=== PATIENT | female | born 1950 | race Caucasian/White ===

== ENCOUNTER 2016-10-16 08:41 | Outpatient (CLI) | payer OTHER ==
--- NOTE | 2016-10-16 10:19 | DIAGNOSTIC IMAGING REPORT ---
PROCEDURE: US ABDOMEN ULTRASOUND-COMPLETE INDICATION: ABD PAIN,EVAL FOR GALLSTONES TECHNIQUE: Traylor scale and color Doppler sonographic images of the abdomen were obtained. COMPARISON: CT abdomen/pelvis 06/30/2010 FINDINGS: There are multiple tiny nonshadowing mobile gallstones. There is no gallbladder wall thickening or pericholecystic fluid. Negative Altamirano's sign. Normal CBD measures 2.8 mm. Liver and pancreas are normal. Spleen not well visualized. Aorta and IVC are patent. Normal hepatopetal flow. Right kidney measures 11 cm with a 2.4 cm superior to mid pole simple cyst. Left sommer measures 9.5 cm with a 1 cm mid pole simple cyst. IMPRESSION: 1. Multiple tiny mobile gallstones 2. Bilateral renal cysts
[2016-11-08] MEDS ORDERED: HYDROCHLOROTHIA25 MG PO (12:18)
[2016-11-08] MEDS ORDERED: DILAUDID2 MG PO (12:18)
[2016-11-08] MEDS ORDERED: ATORVASTATIN CA40 MG PO (12:18)
[2016-11-08] MEDS ORDERED: OMEPRAZOLE20 M1 PO (12:19)
[2016-11-08] MEDS ORDERED: LISINOPRIL10 MG PO (12:19)
== END 2016-10-16 23:00 ==
LOC: US SRH 08:41
DX: R10.9 Unspecified abdominal pain (principal); K80.80 Other cholelithiasis without obstruction; N28.1 Cyst of kidney, acquired

== ENCOUNTER 2016-11-12 07:20 | Day surgery (SDC) | payer OTHER ==
[~2016-11-12] VITALS: Ht 154.9 cm; Wt 57.1 kg
[~2016-11-12 07:20] MED LIST: ATORVASTATIN CA40 MG PO; DILAUDID2 MG PO; HYDROCHLOROTHIA25 MG PO; LISINOPRIL10 MG PO; OMEPRAZOLE20 M1 PO
[2016-11-12] MEDS ORDERED: HYCET1 ML PO (10:40)
--- NOTE | 2016-11-12 10:41 | Provider's Discharge Care Plan ---
Problem, Goal, Plan Problem List 1. S/P laparoscopic cholecystectomy Goals: Improve disease control, Therapeutic intervention Instructions: Follow up as directed, Take meds as directed
--- NOTE | 2016-11-12 10:41 | Provider's Discharge Care Plan ---
Problem, Goal, Plan Problem List 1. S/P laparoscopic cholecystectomy Goals: Improve disease control, Therapeutic intervention Instructions: Follow up as directed, Take meds as directed
--- NOTE | 2016-11-12 11:34 | OPERATIVE REPORT ---
DATE OF SURGERY: 11/12/2016 SURGEON: Marshal Pisano III, MD SAMMYING MACHINE OPERATOR: Jesus Miller MD PREOPERATIVE DIAGNOSIS: 1. Symptomatic cholelithiasis POSTOPERATIVE DIAGNOSIS: 1. Symptomatic cholelithiasis PROCEDURES PERFORMED: 1. Laparoscopic cholecystectomy ANESTHESIA: General endotracheal. INDICATIONS: The patient is a 65-year-old female with right upper quadrant abdominal pain. Thirty years ago had similar symptoms. She was seen by her family physician and told she had gallstones, but nothing came of it. Recently became symptomatic with right upper quadrant pain. She had a CT of the abdomen which showed multiple tiny stones. Scheduled for laparoscopic cholecystectomy. SURGICAL FINDINGS: Distended gallbladder with tiny stones. The cystic duct was very tiny and could not allow cannulation because of the tiny lumen. The patient had no prior history of jaundice, janie-colored stool or dark urine. SURGICAL TECHNIQUE: The patient was brought to the operating room and placed in the dorsal supine position where she was administered general endotracheal anesthesia by the anesthesiology department. After proper anesthesia had taken effect, the patient 's abdomen was prepped using Betadine and draped in a sterile fashion. An infraumbilical incision was made, carried down through skin and subcutaneous tissue. A Veress needle was inserted through this site, into the abdominal cavity, and after ascertaining its appropriate position with suction irrigation, a pneumoperitoneum was obtained using CO2 insufflation to approximately 14-15 mmHg pressure. Once this pressure was reached, the Veress needle was removed and replaced with a 10 mm trocar. The trocar was removed, leaving the sleeve behind, through which a laparoscopic video camera was introduced in the abdominal cavity. Under direct visualization, a separate 10 mm trocar was placed in the subxiphoid region, two 5 mm trocars were placed in the anterolateral abdominal wall, approximately 3-4 fingerbreadths below the costal margin. Each entered the abdominal cavity under direct visualization. The trocars were removed, leaving the sleeves behind, through which laparoscopic instrumentation was introduced into the abdominal cavity. The gallbladder was identified, retracted cephalad. Adhesions to the anterior wall of the gallbladder were taken down using electrocautery dissection. The cystic duct was circumferentially isolated using a combination of blunt dissection and electrocautery. A clip was placed at the junction of the neck of the gallbladder and the cystic duct. A small incision was made in the anterior surface of the cystic duct. A percutaneous cholangiogram catheter was threaded through the anterior abdominal wall, and multiple attempts at various locales on the cystic duct were attempted, without success. The cystic duct lumen was quite tiny and would not allow our cannula to be inserted. Therefore, I decided not to proceed with intraoperative cholangiogram. The distal cystic duct was clipped in continuity, divided. The cystic artery identified, clipped in continuity and divided. The gallbladder was taken down from its bed in a retrograde fashion using electrocautery dissection, placed in a sterile specimen container bag and retrieved from the abdominal cavity and sent to pathology. The gallbladder bed was inspected for hemostasis. Assuring to have proper hemostasis , the right upper quadrant was irrigated with warm normal saline and antibiotic solution and the irrigant suctioned out. Approximately 30 mL of 0.5% Marcaine with epinephrine was sprayed over the right and left dome of the liver for postoperative analgesia. The pneumoperitoneum was released and all trocars were removed from the abdominal cavity. All trocar sites approximated using 4-0 subdermal Polysorb and Steri-Strips. Sterile pressure occlusive dressings placed over each site. The patient tolerated the procedure well, was extubated and transferred to the recovery room in stable condition. There were no intraoperative or anesthetic complications.
[2016-11-12 14:00] VITALS: BP 122/73
== END 2016-11-12 14:48 | disposition home or self-care (01) ==
LOC: OR SRH 07:20 → SCU SRH 08:02 → OR SRH 09:45
PROVIDERS: Specialist
PROC: 0FT44ZZ Resection of Gallbladder, Percutaneous Endoscopic Approach (ICD-10-PCS; principal; 2016-11-12 09:45)
DX: K80.10 Calculus of gallbladder with chronic cholecystitis without obstruction (principal); I10 Essential (primary) hypertension; Z72.0 Tobacco use
CPT/HCPCS: 29240; 50002; 60001; 70002; 80102; 80212; 80248; 82669; 82794; 82807; 83338; 83339; 83348; 83587; 83920; 83937; 83982; 84038; 90074; 90100; 95059

== ENCOUNTER → 2016-12-13 | Emergency (ER) | payer OTHER ==
[~2016-12-13] MED LIST changes: +HYCET1 ML PO
--- NOTE | 2016-12-13 11:57 | ED NURSING NOTES ---
Clinical Report - Nurses [facility] [address] [place] [address] 12/13/2016 10:16 [id number] Triage time 10:18. Acuity: LEVEL 3. Chief Complaint: CHEST PAIN. Alert. No acute distress. BRIAN COMA SCORE: [employer] Coma Scale: 15- eyes open spontaneously (4); best verbal response- oriented x 4 (5); best motor response- obeys commands (6). --10:29 Eli Shaffer R.N. 10:18 12/13/16. BP: 136/63. HR: 56. RR: 18. O2 saturation: 100%. Temp: 97.7 F (oral). Pain level now: 6/10. --10:29 Eli Shaffer R.N. Weight: 55.3 kg stated. Height/Length: 61 inches Per Patient. BMI: 23. --10:23 Eli Shaffer R.N. Medications Lisinopril Oral. Omeprazole Oral. Simvastatin Oral. --10:21 Eli Shaffer R.N. Nitroglycerin Translingual. --10:21 Eli Shaffer R.N. Medication/allergy information source: the patient. --10:29 Eli Shaffer R.N. Allergies Codeine. Morphine and Related. --10:21 Eli Shaffer R.N. History Arrived by private vehicle. Historian: patient. Accompanied by family. Primary physician (Aleksandar). This started today. Onset. (0500). Describes the quality as dull, sharp and (constant). Relates location as in the left chest area. Notes pain level as 6/10 on arrival and 8/10 at maximum. Provoking / relieving factors: not worsened by anything; relieved by nitroglycerin (two, from patients own supply). (better with deep breaths). Relief was partial. The patient has had difficulty breathing and nausea. No sweating episodes or vomiting. 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 SOCIAL HX: Heavy tobacco smoker- 1 pack per day. No alcohol use or drug use. FALL RISK ASSESSMENT: Fall risk assessment completed. No fall risk identified. FUNCTIONAL ASSESSMENT: Functional assessment: no impairments noted. LEARNING NEEDS ASSESSMENT: The learning needs assessment revealed no barriers. --10:29 Eli Shaffer R.N. PROBLEMS: Gastroesophageal Reflux Disease. --10:27 Eli Shaffer R.N. ADDITIONAL SURGERIES: Back Surgery. Cholecystectomy. Removed part of her intestine. Shoulder Surgery. Tubal . --10:27 Eli Shaffer R.N. Assessment GENERAL / NEURO / PSYCH: Alert. Oriented X 4. Appears in no acute distress. RESPIRATORY: Respirations not labored. Cough. SKIN: Skin is warm and dry. --10:29 Eli Shaffer R.N. Interventions ID and allergy band on patient. To treatment room. --10:29 Eli Shaffer R.N. PHYSICAL ASSESSMENT 10:20. To room via wheelchair. Patient gowned. GENERAL / NEURO / PSYCH: Alert. Oriented X 4. Appears in no acute distress. RESPIRATORY: Respirations not labored. SKIN: Skin is warm and dry. --11:02 Eli Shaffer R.N. NURSING PROGRESS NOTES EKG time: (1025 AM). EKG was ordered, performed by a tech and shown to the ED physician. --10:41 Laron Demetria Patient returned from CT by stretcher with tech. --10:47 Adebayo Carolina R.N. 10:56 12/13/16. BP: 118/69. HR: 58. RR: 13. O2 saturation: 100% on room air. Pain level now: 11/02. --10:57 Adebayo Carolina R.N. 10:25 12/13/2016 Aspirin PO Tablets 325 mg given. Allergies verified and confirmed 5 rights. --11:04 Eli Shaffer R.N. 10:30 12/13/2016 Site #1 started via IV in the right antecubital space with an 20g angiocath, with aseptic technique and good blood return; one attempt. Blood drawn: rainbow set. Labeled in the presence of the patient and sent to the lab. Saline lock flushed with 10 mL saline. --11:04 Eli Shaffer R.N. 11:03 12/13/16. map plotter, pulse oximeter and NIBP monitor placed on patient. Patient gowned. Head of bed elevated. Call light placed in reach. Side rails up x 1. Bed placed in lowest position. Brakes of bed on. --11:03 Eli Shaffer R.N. Cardiac rhythm: sinus bradycardia. The patient is calm and resting quietly. Overall patient status is improved. RESPIRATORY: No respiratory distress. SKIN: Skin is warm and dry. --11:14 Eli Shaffer R.N. 11:18 12/13/2016 NitroGLYCERIN Paste Topical 1 in. (NOW, to CW) was refused by MD because pain is gone (MD stated not to administer.). Adebayo Carolina --11:18 Adebayo Carolina R.N. ( Pt in to discuss POC with Pt. Pt resting quietly. Reports improved pain, VSS.). --11:58 Adebayo Carolina R.N. DISPOSITION / DISCHARGE 11:57 12/13/16. BP: 117/73. HR: 70. RR: 18. O2 saturation: 99% on room air. Temp: 97.6 F. Pain level now: 11/02. --12:08 Adebayo Carolina R.N. 12:08 12/13/2016 Site #1 removed upon discharge. Bandage applied. --12:08 Adebayo Carolina R.N. Departure time: 12:Dec 13 2016. Condition at departure: improved and stable. No learning barriers present. Discharge instructions provided and reviewed with the patient and family. Patient verbalized understanding. Written instructions provided in Czech. The patient was discharged by the physician. She was discharged home and accompanied by family. She left the Emergency Department ambulatory and via private vehicle. Family member driving. --12:09 Adebayo Carolina R.N. Locked/Released at 12/13/2016 12:10 by Adebayo Carolina R.N.
--- NOTE | 2016-12-13 11:57 | ED NURSING NOTES ---
Clinical Report - Nurses [facility] [address] [place] [address] 12/13/2016 10:16 [id number] Triage time 10:18. Acuity: LEVEL 3. Chief Complaint: CHEST PAIN. Alert. No acute distress. BRIAN COMA SCORE: [employer] Coma Scale: 15- eyes open spontaneously (4); best verbal response- oriented x 4 (5); best motor response- obeys commands (6). --10:29 Eli Shaffer R.N. 10:18 12/13/16. BP: 136/63. HR: 56. RR: 18. O2 saturation: 100%. Temp: 97.7 F (oral). Pain level now: 6/10. --10:29 Eli Shaffer R.N. Weight: 55.3 kg stated. Height/Length: 61 inches Per Patient. BMI: 23. --10:23 Eli Shaffer R.N. Medications Lisinopril Oral. Omeprazole Oral. Simvastatin Oral. --10:21 Eli Shaffer R.N. Nitroglycerin Translingual. --10:21 Eli Shaffer R.N. Medication/allergy information source: the patient. --10:29 Eli Shaffer R.N. Allergies Codeine. Morphine and Related. --10:21 Eli Shaffer R.N. History Arrived by private vehicle. Historian: patient. Accompanied by family. Primary physician (Aleksandar). This started today. Onset. (0500). Describes the quality as dull, sharp and (constant). Relates location as in the left chest area. Notes pain level as 6/10 on arrival and 8/10 at maximum. Provoking / relieving factors: not worsened by anything; relieved by nitroglycerin (two, from patients own supply). (better with deep breaths). Relief was partial. The patient has had difficulty breathing and nausea. No sweating episodes or vomiting. 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 SOCIAL HX: Heavy tobacco smoker- 1 pack per day. No alcohol use or drug use. FALL RISK ASSESSMENT: Fall risk assessment completed. No fall risk identified. FUNCTIONAL ASSESSMENT: Functional assessment: no impairments noted. LEARNING NEEDS ASSESSMENT: The learning needs assessment revealed no barriers. --10:29 Eli Shaffer R.N. PROBLEMS: Gastroesophageal Reflux Disease. --10:27 Eli Shaffer R.N. ADDITIONAL SURGERIES: Back Surgery. Cholecystectomy. Removed part of her intestine. Shoulder Surgery. Tubal . --10:27 Eli Shaffer R.N. Assessment GENERAL / NEURO / PSYCH: Alert. Oriented X 4. Appears in no acute distress. RESPIRATORY: Respirations not labored. Cough. SKIN: Skin is warm and dry. --10:29 Eli Shaffer R.N. Interventions ID and allergy band on patient. To treatment room. --10:29 Eli Shaffer R.N. PHYSICAL ASSESSMENT 10:20. To room via wheelchair. Patient gowned. GENERAL / NEURO / PSYCH: Alert. Oriented X 4. Appears in no acute distress. RESPIRATORY: Respirations not labored. SKIN: Skin is warm and dry. --11:02 Eli Shaffer R.N. NURSING PROGRESS NOTES EKG time: (1025 AM). EKG was ordered, performed by a tech and shown to the ED physician. --10:41 Laron Demetria Patient returned from CT by stretcher with tech. --10:47 Adebayo Carolina R.N. 10:56 12/13/16. BP: 118/69. HR: 58. RR: 13. O2 saturation: 100% on room air. Pain level now: 11/02. --10:57 Adebayo Carolina R.N. 10:25 12/13/2016 Aspirin PO Tablets 325 mg given. Allergies verified and confirmed 5 rights. --11:04 Eli Shaffer R.N. 10:30 12/13/2016 Site #1 started via IV in the right antecubital space with an 20g angiocath, with aseptic technique and good blood return; one attempt. Blood drawn: rainbow set. Labeled in the presence of the patient and sent to the lab. Saline lock flushed with 10 mL saline. --11:04 Eli Shaffer R.N. 11:03 12/13/16. sales enablement analyst, pulse oximeter and NIBP monitor placed on patient. Patient gowned. Head of bed elevated. Call light placed in reach. Side rails up x 1. Bed placed in lowest position. Brakes of bed on. --11:03 Eli Shaffer R.N. Cardiac rhythm: sinus bradycardia. The patient is calm and resting quietly. Overall patient status is improved. RESPIRATORY: No respiratory distress. SKIN: Skin is warm and dry. --11:14 Eli Shaffer R.N. 11:18 12/13/2016 NitroGLYCERIN Paste Topical 1 in. (NOW, to CW) was refused by MD because pain is gone (MD stated not to administer.). Adebayo Carolina --11:18 Adebayo Carolina R.N. ( Pt in to discuss POC with Pt. Pt resting quietly. Reports improved pain, VSS.). --11:58 Adebayo Carolina R.N. DISPOSITION / DISCHARGE 11:57 12/13/16. BP: 117/73. HR: 70. RR: 18. O2 saturation: 99% on room air. Temp: 97.6 F. Pain level now: 11/02. --12:08 Adebayo Carolina R.N. 12:08 12/13/2016 Site #1 removed upon discharge. Bandage applied. --12:08 Adebayo Carolina R.N. Departure time: 12:Dec 13 2016. Condition at departure: improved and stable. No learning barriers present. Discharge instructions provided and reviewed with the patient and family. Patient verbalized understanding. Written instructions provided in Indonesian. The patient was discharged by the physician. She was discharged home and accompanied by family. She left the Emergency Department ambulatory and via private vehicle. Family member driving. --12:09 Adebayo Carolina R.N. Locked/Released at 12/13/2016 12:10 by Adebayo Carolina R.N.
--- NOTE | 2016-12-13 11:57 | ED CLINICAL REPORT ---
Clinical Report - Physicians/Mid Levels [facility] [address] [place] [address] 12/13/2016 10:16 Patient: SUSI POST Time Seen: 10:21; initial patient contact. Arrived- By private vehicle. Historian- patient. HISTORY OF PRESENT ILLNESS Chief Complaint: CHEST PAIN. At its maximum, severity described as mild. When seen in the E.D., severity described as mild. Modifying factors- worsened by deep breaths. Not relieved by anything. This started today and is still present. It was abrupt in onset and has been constant. Onset during rest. It is described as dull and aching and it is described as located in the left costal cartilage area. No radiation. No nausea, vomiting, difficulty breathing or diaphoresis. Similar symptoms previously: None. Recent medical care: Not recently seen/assessed. REVIEW OF SYSTEMS No fever, pedal edema, calf pain or abdominal pain. She has had chills. All systems otherwise negative, except as recorded above. PAST HISTORY Cardiac stress test 10/21/15: 1. No evidence for fixed or ischemic defects. 2. There is normal left ventricular size, function and contractility with ejection fraction at 85%. 3. This is a low-risk normal study. Gastroesophageal Reflux Disease. HTN HLD SURGERIES: Back Surgery. Cholecystectomy. Removed part of her intestine. Shoulder Surgery. Tubal . Medications: Nitroglycerin Translingual. Lisinopril Oral. Omeprazole Oral. Simvastatin Oral. Allergies: Codeine. Morphine and Related. SOCIAL HISTORY Current every day heavy tobacco smoker. No alcohol use or drug use. ADDITIONAL NOTES The nursing notes have been reviewed with agreement regarding the chief complaint, PMH and patient medications and allergies. PHYSICAL EXAM Vital Signs: 12/13/2016 10:18 BP: 136/63. HR: 56. RR: 18. O2 saturation: 100%. Temp: 97.7 F. Pain level now: 6/10. Have been reviewed. Blood pressure normal. Bradycardic. Respiratory rate normal. Temperature normal. Oxygen saturation normal. Appearance: Alert. Oriented X3. No acute distress. Eyes: Eyes normal inspection. ENT: Pharynx normal. Neck: No JVD. CVS: Normal heart rate and rhythm. Heart sounds normal. Respiratory: No respiratory distress. Chest pain reproducible with palpation of the costochondral junction and with deep breathing (TTP lower L sided costochondral cartilage). Breath sounds normal. No splinting or decreased air movement. Abdomen: Soft and nontender. Bowel sounds normal. Skin: Normal skin color. No rash. Extremities: No calf tenderness. No lower extremity edema. Neuro: Oriented X 3. LABS, X-RAYS, AND EKG EKG: EKG time: (1025). Narrow-complex bradycardia (ventricular rate 54). Sinus bradycardia. Normal P waves. Normal MINERVA. Normal QRS complex. Normal axis. Normal ST and T waves and QT. Prior EKG unavailable. The study has been interpreted contemporaneously by me. The study has been independently viewed by me. The EKG appears to be a good tracing. Interpretation time: 1025. Chest X-ray: No acute disease. Mild hyperinflation present on the right and left with flattening of the diaphragm. Consistent with COPD. Normal heart size. Mediastinum normal. Great vessels normal. Soft tissues normal. No infiltrate. No fracture. No bony lesion present. Views: AP. Technique: good. The X-rays were independently viewed by me and interpreted contemporaneously by me. Prior films were not available for comparison. Interpretation time: 11:30. Laboratory Tests: UA-Culture if indicated: (DANETTE: 12/13/2016 11:01) ( MsgRcvd 12/13/2016 11:31) Final results Test Result Flag Units (Reference) URINE COLOR YELLOW URINE APPEARANCE CLEAR URINE GLUCOSE NEGATIVE (NEGATIVE) URINE BILIRUBIN NEGATIVE (NEGATIVE) URINE KETONE NEGATIVE (NEGATIVE) URINE SPECIFIC GRAVITY 1.020 (1.010-1.030) URINE PH 5.5 (5.0-8.0) URINE PROTEIN NEGATIVE (NEGATIVE) URINE UROBILINOGEN 0.2 EU/dL (0.2-1.0) URINE NITRITE NEGATIVE (NEGATIVE) URINE BLOOD 2+ (NEGATIVE) URINE LEUK ESTERASE NEGATIVE (NEGATIVE) URINE RBC 5-10 rbc/hpf (0-1) URINE WBC 1-3 wbc/hpf (0-1) URINE EPITHELIAL CELLS 0-1 EPI/hpf (0-5) URINE BACTERIA FEW (1+) (NONE SEEN) URINE COMMENT CULT NOT INDICATED 1+ MUCOUSURINE CULTURES ARE SET-UP BASED ON THE FOLLOWING CRITERIA:POSITIVE NITRITEPOSITIVE LEUKOCYTE ESTERASEGREATER THAN 10 WHITE BLOOD CELLSMODERATE (2+) OR GREATER BACTERIA CBC w Diff: (DANETTE: 12/13/2016 10:30) ( [facility] 12/13/2016 10:49) Final results Test Result Flag Units (Reference) WHITE BLOOD COUNT 8.9 K/uL (4.5-11.5) RED BLOOD COUNT 3.84 L M/uL (4.00-5.20) HEMOGLOBIN 11.4 L gm/dL (12.0-16.0) HEMATOCRIT 34.5 L % (36.0-46.0) MEAN CELL VOLUME 90 fL (80-100) MEAN CORPUSCULAR HGB 30 pg (26-34) MEAN CORPUSCULAR HGB CONC 33 g/dL (31-37) RED CELL DISTRIBUTION WIDTH 14.1 % (11.6-14.8) PLATELET COUNT 280 K/uL (150-400) NEUTROPHIL % 68.4 % (50-75) LYMPH % 25.0 % (25-40) MONO % 4.8 % (3-14) EOSINOPHIL % 1.4 % (0-4) BASOPHIL % 0.4 % (0-2) [id number]: (DANETTE: 12/13/2016 10:30) ( [facility] 12/13/2016 10:52) Final results Test Result Flag Units (Reference) D-DIMER QUANTITATIVE 0.62 H ug/mLFEU (0.27-0.52) The primary value of this quantitative assay relates toits negative predictive value (i.e. exclusion) of pulmonaryembolism/deep vein thrombosis/DIC.Elevated levels of d-dimer may also occur with:, age, cancer, inflammation, liver disease,post-op, infection, hematoma, coronary disease, peripheralarteriopathy, bleeding disorders and thrombolytic treatment.Results should be correlated with other clinical andradiological data.Testing Methodology: Latex Immunoassay Urine Drug Screen: (DANETTE: 12/13/2016 11:01) ( [facility] 12/13/2016 11:36) Final results Test Result Flag Units (Reference) AMPHETAMINE/METHAMPHETAMINE NEGATIVE (NEGATIVE) BARBITURATE NEGATIVE (NEGATIVE) BENZODIAZEPINE NEGATIVE (NEGATIVE) CANNABINOID NEGATIVE (NEGATIVE) COCAINE NEGATIVE (NEGATIVE) ECSTASY NEGATIVE (NEGATIVE) METHADONE NEGATIVE (NEGATIVE) OPIATE NEGATIVE (NEGATIVE) The urine drug screen is a qualitative screening test fordrug overdose and abuse. All screen results should beconsidered as presumptive.Drugs screened for are as follows:BenzodiazepinesCocaineAmphetamines/MetamphetaminesTHC (Tetrahydrocannabinol)OpiatesBarbituratesEcstasyMethadonePositive results are unconfirmed. For confirmation, notifythe lab for the specimen to be sent to the reference lab.All confirmations must be performed by a differentmethodology.The ingestion of natural herbal and plant productscontaining Ephedra/Ephedra metabolites can produce in urineone or more substances capable of cross reacting withamphetamine/methamphetamine immunoassays. These testsprovide a preliminary result only. A more specificalternative chemical method must be used to obtain aconfirmed analytical result. BNP: (DANETTE: 12/13/2016 10:30) ( [facility] 12/13/2016 11:11) Final results Test Result Flag Units (Reference) B-TYPE NATRIURETIC PEPTIDE 11.2 pg/ml (5-100) CHEM 13 PANEL: (DANETTE: 12/13/2016 10:30) ( [facility] 12/13/2016 11:14) Final results Test Result Flag Units (Reference) GLUCOSE 106 mg/dL (70-110) BUN 20 H mg/dL (7-18) CREATININE 1.4 H mg/dL (0.6-1.3) Estimated GFR 40.11 mL/min Estimated GFR- 48.61 mL/min Note: Persistent reduction over 3 months in eGFR<60 mL/min/1.73 m2 defines CKD. Patients with eGFR values>=60 mL/min/1.73 m2 may also have CKD if evidence ofpersistent proteinuria. Additional information may be foundat www.kidney.org. SODIUM 143 mmol/L (136-145) POTASSIUM 4.0 mmol/L (3.5-5.1) CHLORIDE 106 mmol/L (98-107) CARBON DIOXIDE 27 mmol/L (21-32) CALCIUM 9.4 mg/dL (8.5-10.1) TOTAL PROTEIN 7.0 g/dL (6.4-8.2) ALBUMIN 3.7 g/dL (3.3-5.0) BILIRUBIN, TOTAL 0.5 mg/dL (0.0-1.0) ALKALINE PHOSPHATASE 70 U/L (46-116) AST (SGOT) 15 U/L (15-37) ALT (SGPT) 22 U/L (12-78) MAGNESIUM 1.9 mg/dL (1.8-2.4) CPK 63 U/L (24-260) TROPONIN I <0.05 L ng/mL (0.00-1.5) TROPONIN REFERENCE RANGE:<0.1 NEGATIVE0.1-1.5 INDETERMINANT>1.5 POSITIVE . PROGRESS AND PROCEDURES Course of Care: Nl stress test 1 yr ago Mildly positive D dimer, but pre-test probability very low and mild renal dysfunction. Disposition: Discharged home in good condition. Condition: good. CLINICAL IMPRESSION Costochondritis .12 lead EKG performed. Mild chronic renal insufficiency. INSTRUCTIONS Do not smoke. Seek medical help to quit smoking. Drink plenty of fluids. Follow a low salt diet. Your Current Medications: CONTINUE TAKING THE FOLLOWING MEDICATIONS: Lisinopril Oral. Nitroglycerin Translingual. Omeprazole Oral. Simvastatin Oral. Follow-up: Follow up with your doctor in about four days if not better. Call for an appointment. Blood pressure screening was not performed during this visit because the patient has an active diagnosis of hypertension. (Electronically signed by Nicholas Elizondo Dr. 12/13/2016 12:00)
--- NOTE | 2016-12-13 11:57 | ED ORDER SUMMARY ---
..... Patient: SUSI POST OrderSheet [facility] VisitID: [id number] [address] [place], [place] [id number] 66y, F Registration Date/Time: 12/13/2016 ORDER SHEET Weight: 55.3 kg (stated) Allergies: Codeine, Morphine and Related GENERAL ORDERS: Chest 2V Urgent (10:12/13/2016 Keith Brown) (Ack 10:38 Claudia) (10:48 Claudia) CBC w Diff Urgent (10:12/13/2016 Keith Brown) (Ack 10:38 Claudia) (10:53 MCook R.N.) UA-Culture if indicated Urgent (10:12/13/2016 Keith Brown) (Ack 10:38 Claudia) (11:07 Amaurik R.N.) Cardiac Panel Stat (10:12/13/2016 Keith Borwn) (Ack 10:38 Claudia) (10:53 MClinak R.N.) D-Dimer Urgent (10:12/13/2016 Keith Brown) (Ack 10:38 Claudia) (10:53 MCook R.N.) BNP Urgent (10:12/13/2016 Keith Brown) (Ack 10:38 Claudia) (10:53 MCook R.N.) Urine Drug Screen Urgent (10:12/13/2016 Keith Brown) (Ack 10:38 Claudia) (11:07 MClinak R.N.) EKG - ER Stat (10:12/13/2016 Keith Brown) (10:33 Claudia) MEDICATION ORDERS: Aspirin PO 325 mg (Do not crush or chew, NOW) (10:12/13/2016 Keith Brown) (11:04 Jonah R.N.) NitroGLYCERIN Paste Topical 1 in. (NOW, to CW) (10:12/13/2016 Keith Brown) (11:18 Amaurik R.N.) IV FLUIDS: IV Saline Lock (10:12/13/2016 Keith Brown) (11:04 Jonah Charles) ORDER SHEET NOTES: [Electronically signed by Nicholas Elizondo Dr. (12:00 12/13/2016)] [Electronically signed by Adebayo Carolina R.N. (12:10 12/13/2016)] [Electronically locked/signed by Adebayo Carolina R.N. (12:10 12/13/2016)]
--- NOTE | 2016-12-13 11:57 | ED ORDER SUMMARY ---
..... Patient: SUSI POST OrderSheet [facility] VisitID: [id number] [address] [place], [place] [id number] 66y, F Registration Date/Time: 12/13/2016 ORDER SHEET Weight: 55.3 kg (stated) Allergies: Codeine, Morphine and Related GENERAL ORDERS: Chest 2V Urgent (10:12/13/2016 Keith Brown) (Ack 10:38 Claudia) (10:48 Claudia) CBC w Diff Urgent (10:12/13/2016 Keith Brown) (Ack 10:38 Claudia) (10:53 MCook R.N.) UA-Culture if indicated Urgent (10:12/13/2016 Keith Brown) (Ack 10:38 Claudia) (11:07 Amaurik R.N.) Cardiac Panel Stat (10:12/13/2016 Keith Brown) (Ack 10:38 Claudia) (10:53 MClinak R.N.) D-Dimer Urgent (10:12/13/2016 Keith Brown) (Ack 10:38 Claudia) (10:53 MCook R.N.) BNP Urgent (10:12/13/2016 Keith Brown) (Ack 10:38 Claudia) (10:53 MCook R.N.) Urine Drug Screen Urgent (10:12/13/2016 Keith Brown) (Ack 10:38 Claudia) (11:07 MClinak R.N.) EKG - ER Stat (10:12/13/2016 Keith Brown) (10:33 Claudia) MEDICATION ORDERS: Aspirin PO 325 mg (Do not crush or chew, NOW) (10:12/13/2016 Keith Brown) (11:04 Jonah R.N.) NitroGLYCERIN Paste Topical 1 in. (NOW, to CW) (10:12/13/2016 Keith Brown) (11:18 Amaurik R.N.) IV FLUIDS: IV Saline Lock (10:12/13/2016 Keith Brown) (11:04 Jonah Charles) ORDER SHEET NOTES: [Electronically signed by Nicholas Elizondo Dr. (12:00 12/13/2016)] [Electronically signed by Adebayo Carolina R.N. (12:10 12/13/2016)] [Electronically locked/signed by Adebayo Carolina R.N. (12:10 12/13/2016)]
--- NOTE | 2016-12-13 12:10 | ED MAR SUMMARY ---
..... Medication Administration Record [facility] [address] [place] [address] Patient: SUSI POST Visit ID: [id number] 66y, F Weight: 55.3 kg Height/Length: 61 in BMI: 23 ALLERGIES: Codeine, Morphine and Related Given 10:25 12/13/2016 Eli Shaffer RErmias Medication Administered: ASPIRIN [PO], Dose: 325 mg Tablets PO. Medication Ordered: Aspirin PO 325 mg (Do not crush or chew, NOW).
--- NOTE | 2016-12-13 12:10 | ED MED RECONCILIATION SUMMARY ---
Patient: SUSI POST Medication Reconciliation Report [facility] VisitID: [id number] [address] [place] [address] 66y, F Registration Date/Time: 12/13/2016 Weight: 55.3 kg Height/Length: 61 in. BMI: 23.0 ALLERGIES: Codeine, Morphine and Related The patient's Home Medications are listed below: CONTINUE TAKING THE FOLLOWING MEDICATIONS: Lisinopril Oral Nitroglycerin Translingual Omeprazole Oral Simvastatin Oral The source(s) of the original Home Medication information: patient The following Medications were given to the patient in the Emergency Department: Aspirin [PO] PO 325 mg, administered: 12/13/2016 10:25:00 AM The following Medications were prescribed to the patient: None.
--- NOTE | 2016-12-13 12:10 | ED DISCHARGE INSTRUCTIONS ---
Patient: SUSI POST General Instructions [facility] VisitID: [id number] [place] [address] 66y, F Registration Date/Time: 12/13/2016 Costochondritis .12 lead EKG performed. Mild chronic renal insufficiency. INSTRUCTIONS Do not smoke. Seek medical help to quit smoking. Drink plenty of fluids. Follow a low salt diet. Your Current Medications: CONTINUE TAKING THE FOLLOWING MEDICATIONS: Lisinopril Oral. Nitroglycerin Translingual. Omeprazole Oral. Simvastatin Oral. Follow-up: Follow up with your doctor in about four days if not better. Call for an appointment. Blood pressure screening was not performed during this visit because the patient has an active diagnosis of hypertension. ADDITIONAL INFORMATION Chest Wall Pain: Costochondritis The chest pain that you have had today is caused by Costochondritis. This condition is due to an inflammation of the cartilage joining the ribs to the breastbone. It is not caused by heart or lung problems. Although the exact cause for costochondritis is not known, it often occurs during times of emotional stress. It can be painful, but it is not dangerous. It usually disappears within one to two weeks, but may recur. Rarely, a more serious condition may cause symptoms similar to costochondritis; therefore, watch for the warning signs listed below. Home Care: If you feel that emotional stress is a cause of your condition, try to identify sources of that stress. It may not be obvious! Learn ways to deal with the stress in your life such as regular exercise, muscle relaxation, meditation, or simply taking time out for yourself. For more information about this, consult your doctor or go to a local bookstore and review books and tapes available on the subject of stress reduction. You may use acetaminophen (Tylenol) or ibuprofen (Motrin, Advil) to control pain, unless another pain medicine was prescribed. [ NOTE: If you have liver disease or ever had a stomach ulcer, talk with your doctor before using these medicines.] The use of heat (hot wet compress or heating pad) with or without local analgesic creams (Deep Heat Rub, Matt Canchola) will be helpful to reduce pain. Follow Up with your doctor as directed or sooner if you do not start to improve within the next two days. Get Prompt Medical Attention if any of the following occur: A change in the type of pain: if it feels different, becomes more severe, lasts longer, or spreads into your shoulder, arm, neck, jaw or back Shortness of breath or increased pain with breathing Weakness, dizziness, or fainting Cough with dark colored sputum (phlegm) or blood Abdominal pain Dark red or black stools Fever of 100.4F (38C) or higher, or as directed by your healthcare provider Renal Insufficiency The role of the kidneys is to remove waste products and excess water from the body. When the kidneys do not function normally, waste products build up in the blood.The early stage of this process is called renal insufficiency . If renal insufficiency worsens it can lead to chronic renal failure. This allows excess water, waste and toxic substances to build up in the body. This can become a threat to life, requiring dialysis or a kidney transplant to stay alive. Diabetes is the leading causes of renal insufficiency. Other causes include high blood pressure, hardening of the arteries, lupus, inflammation of the blood vessels (vasculitis), prior viral and bacterial infections, and others. Certain fcmg-udv-[id number] pain medicines can cause renal failure when taken often over a long period of time. These include aspirin, ibuprofen (Advil, Motrin) and related anti-inflammatory medicines. Home Care: If you have diabetes, talk to your doctor about the quality of your blood sugar control.Ask about any changes needed to your diet or medicines. If you have high blood pressure: Take your blood pressure medicine. Take up a regular exercise program that you enjoy.Check with your doctor to be sure your planned exercise program is right for you. Reduce your salt (sodium) intake.Your doctor can tell you how much salt per day is safe for you. If you are overweight, talk to your doctor about a weight loss plan. If you smoke, you must quit.Smoking worsens kidney disease.Talk to your doctor about ways to help you quit.For more information, visit the following links: www.smokefree.gov/pubs/clearing_the_air.pdf www.smokefree.gov www.quitnet.com Talk to your doctor about any dietary restrictions advised. In general, it is advisable to limit protein, salt, potassium and phosphorus.Avoid excess fluids. Do not add salt at the table and avoid salty foods.A calcium supplement may be prescribed to protect your bones from osteoporosis. Avoid the following over the counter medicines, or consult your doctor before using: Aspirin and anti-inflammatory drugs such as ibuprofen (Advil, Motrin), naprosyn (Aleve); [Short term use of acetaminophen (Tylenol) for fever or pain is okay.] Laxatives and antacids containing magnesium or aluminum (Mylanta, Maalox) Avoid Fleet or phosphosoda enemas which contain phosphorus Certain stomach acid-blocking medicine such as cimetidine (Tagamet), ranitidine (Zantac) Decongestants containing pseudoephedrine (such as some forms of Sudafed or Actifed) Herbal supplements Follow Up with your doctor or as advised by our staff. Contact one of the following for more information. [place] [employer]([phone] [phone] www.aakp.org National Kidney Foundation www.kidney.org Return Promptly or contact your doctor if any of the following occurs: Nausea or vomiting Severe weakness, dizziness, fainting, drowsiness or confusion Chest pain or shortness of breath Unexpected weight gain or swelling in the legs, ankles or around the eyes Heart beating fast, slow or irregularly Decrease or loss in urine output How To Quit Smoking Smoking is one of the hardest habits to break. About half of all those who have ever smoked have been able to quit, and most of those (about 70%) who still smoke want to quit. Here are some of the best ways to stop smoking. Keep Trying: It takes most smokers about 8 tries before they are finally able to fully quit. So, the more often you try and fail, the better your chance of quitting the next time! So, don't give up! Go Cold [place]: Most ex-smokers quit cold turkey. Trying to cut back gradually doesn't seem to work as well, perhaps because it continues the smoking habit. Also, it is possible to fool yourself by inhaling more while smoking fewer cigarettes. This results in the same amount of nicotine in your body! Get Support: Support programs can make an important difference, especially for the heavy smoker. These groups offer lectures, methods to change your behavior and peer support. Call the free national Quitline for more information. 041-ZSRC-PIG (071-916-3119). Low-cost or free programs are offered by many hospitals, local chapters of the [employer] (660-836-0159) and the [employer] (474-530-2710). Support at home is important too. Non-smokers can help by offering praise and encouragement. If the smoker fails to quit, encourage them to try again! Tpas-Ssm-Jftmsbi Medicines: For those who can't quit on their own, Nicotine Replacement Therapy (NRT) may make quitting much easier. Certain aids such as the nicotine patch, gum and lozenge are available without a prescription. However, it is best to use these under the guidance of your doctor. The skin patch provides a steady supply of nicotine to the body. Nicotine gum and lozenge gives temporary bursts of low levels of nicotine. Both methods take the edge off the craving for cigarettes. WARNING: If you feel symptoms of nicotine overdose, such as nausea, vomiting, dizziness, weakness, or fast heartbeat, stop using these and see your doctor. Prescription Medicines: After evaluating your smoking patterns and prior attempts at quitting, your doctor may offer a prescription medicine such as bupropion (Zyban, Wellbutrin), varenicline (Chantix, Champix), a niocotine inhaler or nasal spray. Each has its unique advantage and side effects which your doctor can review with you. Health Benefits Of Quitting: The benefits of quitting start right away and keep improving the longer you go without smokin minutes: blood pressure and pulse return to normal 8 hours: oxygen levels return to normal 2 days: ability to smell and taste begins to improve as damaged nerves start to regrow 2-3 weeks: circulation and lung function improves 1-9 months: decreased cough, congestion and shortness of breath; less tired 1 year: risk of heart attack decreases by half 5 years: risk of lung cancer decreases by half; risk of stroke becomes the same as a non-smoker For information about how to quit smoking, visit the following links: National [employer] [place] , Clearing the Air, Quit Smoking Today - an online booklet. http://www.smokefree.gov/pubs/clearing_the_air.pdf Smokefree.gov http://smokefree.gov/ QuitNet http://www.quitnet.com/ Low-Salt Diet (2 Grams/Day) This diet eliminates foods that are high in salt and restricts the amount of salt that you cook with. It is most often used for patients with high blood pressure, edema (fluid retention), kidney, liver, and heart disease. Table salt contains the mineral sodium. The body needs sodium to work normally. But too much sodium can make your health problems worse. Your healthcare provider is recommending a low-salt (also called low-sodium) diet for you. Your total daily allowance of salt (sodium) is 2 grams. This equals 2,000 milligrams (mg). It is less than 1 teaspoon of table salt. This means you can have only about 700 mg of sodium at each meal. When you cook, limit the salt you use. And if you can avoid using salt, even better. Do not add salt at the table. So, throw away the saltshaker! When shopping, read the package labels. Salt is often called sodium on the label. Choose foods that are Salt-Free, Low Salt, or Very Low Salt. Note that foods with Reduced Salt may notlower your salt intake enough. Beverages OK: Tea, coffee, carbonated beverages, juices AVOID: Flavored international coffees, electrolyte replacement drinks, sports beverages Bread & Cereals OK: All regular bread, rolls, cereals, cakes; low-salt crackers, matzoh crackers AVOID: Salted crackers, pretzels, popcorn; uzbek toast, pancakes, muffins Fruits & Desserts OK: Ice cream, frozen yogurt, juice bars, gelatin (Jell-O), cookies and pies, sugar, honey, jelly, hard candy AVOID: Most pies, cakes and cookies prepared or processed with salt, instant pudding Meats OK: All fresh meat, fish, poultry, low-salt tuna AVOID: Smoked, pickled, brine-cured, or salted meats or fish. Thisincludes ervin, chipped beef, corned beef, hot dogs, luncheon meats, ham, kosher meats, salt pork, sausage, canned tuna, salted codfish, smokedsalmon, salcido, sardines, or anchovies. Dairy OK: Milk, chocolate milk, hot chocolate mix; eggs, Low Salt cheeses, yogurt, egg substitute AVOID: Processed cheese, cheese spreads, Roquefort, Camembert, and cottage cheese, buttermilk, instant breakfast drink Beans, Potatoes & Pasta OK: Dry beans, split peas, lentils, potatoes, rice, macaroni, noodles, spaghetti without added salt AVOID: Potato chips, tortilla chips, and similar products Soups OK: Low-salt soups and broths made with allowed foods AVOID: Bouillon cubes, soups with smoked or salted meats, regular soup and broth Vegetables OK: Most are okay; low-salt tomato and vegetable juices AVOID: Sauerkraut and other brine-soaked vegetables, pickles and other pickled vegetables, tomato juice, olives Seasoning & Spices OK: Most seasonings are okay. Good substitutes for salt include: fresh herb blends, Tabasco, lemon, garlic, nash, vinegar, dry mustard, parsley, cilantro, horseradish, tomato paste, regular margarine, mayonnaise, butter, cream cheese, vegetable oil, cream, low-salt salad dressing and gravy AVOID: Regular ketchup, relishes, pickles, soy sauce, teriyaki sauce, Worcestershire sauce, BBQ sauce, tartar sauce, meat tenderizer, chili sauce, regular gravy, regular salad dressing You have been given the following additional information: Chest Wall Pain, Costochondritis Renal Insufficiency Smoking Cessation Diet, Low Salt (2Gm) (Electronically signed by Nicholas Elizondo Dr. 12/13/2016 12:00)
--- NOTE | 2016-12-13 12:10 | ED MAR SUMMARY ---
..... Medication Administration Record [facility] [address] [place] [address] Patient: SUSI POST Visit ID: [id number] 66y, F Weight: 55.3 kg Height/Length: 61 in BMI: 23 ALLERGIES: Codeine, Morphine and Related Given 10:25 12/13/2016 Eli Shaffer RErmias Medication Administered: ASPIRIN [PO], Dose: 325 mg Tablets PO. Medication Ordered: Aspirin PO 325 mg (Do not crush or chew, NOW).
--- NOTE | 2016-12-13 12:10 | ED MED RECONCILIATION SUMMARY ---
Patient: SUSI POST Medication Reconciliation Report [facility] VisitID: [id number] [address] [place] [address] 66y, F Registration Date/Time: 12/13/2016 Weight: 55.3 kg Height/Length: 61 in. BMI: 23.0 ALLERGIES: Codeine, Morphine and Related The patient's Home Medications are listed below: CONTINUE TAKING THE FOLLOWING MEDICATIONS: Lisinopril Oral Nitroglycerin Translingual Omeprazole Oral Simvastatin Oral The source(s) of the original Home Medication information: patient The following Medications were given to the patient in the Emergency Department: Aspirin [PO] PO 325 mg, administered: 12/13/2016 10:25:00 AM The following Medications were prescribed to the patient: None.
--- NOTE | 2016-12-13 13:32 | DIAGNOSTIC IMAGING REPORT ---
PROCEDURE: XR CHEST 2 VIEW INDICATION: CHEST PAIN TECHNIQUE: PA and lateral views. COMPARISON: 04/10/2012 FINDINGS: Lungs are clear. Heart and mediastinum are normal. Thorax is normal. IMPRESSION: 1. Negative chest.
== END ==
LOC: ED SRH 10:15
DX: M94.0 Chondrocostal junction syndrome [Tietze] (principal); I12.9 Hypertensive chronic kidney disease with stage 1 through stage 4 chronic kidney disease, or unspecified chronic kidney disease; N18.2 Chronic kidney disease, stage 2 (mild); Z79.899 Other long term (current) drug therapy; Z88.5 Allergy status to narcotic agent
CPT/HCPCS: 90004; 90100; 90616; 91320; 91556; 92610; 92720; 92760; 92761; 92762; 92763; 92764; 92765; 92766; 92767; 95059